=== PATIENT | male | born 1985 | race Caucasian/White ===

== ENCOUNTER 2022-03-05 17:17 | Emergency (ER) | payer BC, OTHER ==
[~2022-03-05] VITALS: Ht 177.8 cm; Wt 70.3 kg
[~2022-03-05 17:17] MED LIST: LAMICTAL
[2022-03-05] MEDS ORDERED: TETANUS/DIPHTHERIA TOX ADULT 0.5 ML SYR IM ONE (18:00)
[2022-03-05] MEDS ORDERED: ACETAMINOPHEN/CODEINE 300MG - 30MG TAB PO ONE (18:15)
[2022-03-05] MEDS ORDERED: IBUPROFEN 600 MG TAB ONE (19:06)
== END 2022-03-05 19:01 | disposition home or self-care (01) ==
LOC: ER 17:44
DX: S60.222A Contusion of left hand, initial encounter (principal); W20.8XXA Other cause of strike by thrown, projected or falling object, initial encounter; Y92.89 Other specified places as the place of occurrence of the external cause
CPT/HCPCS: 90714; 99284